=== PATIENT | male | born 1995 | race African-American/Black ===

== ENCOUNTER 2019-10-12 13:14 | Emergency (ER) | payer OTHER ==
[~2019-10-12] VITALS: Ht 175.3 cm; Wt 71.7 kg
[2019-10-12] MEDS ORDERED: XANAX XR2 MG PO (13:38)
[2019-10-12 13:47] VITALS: BP 121/80
== END 2019-10-12 14:18 | disposition left against medical advice (07) ==
LOC: M.ERS 13:14
DX: Z53.21 Procedure and treatment not carried out due to patient leaving prior to being seen by health care provider (principal)